=== PATIENT | male | born 1980 | race Caucasian/White ===

== ENCOUNTER 2018-06-15 06:51 | Observation (INO) ==
--- NOTE | 2018-06-15 07:07 | Emergency Department Note ---
Disposition Clinical Impression: Metformin overdose, Suicidal intent Disposition: Admitted As Inpatient Condition: Fair Referrals: NONE,PCP [Primary Care Provider] - Forms: ED Satisfaction Letter Psych HPI - General Chief Complaint: ED Psychiatric Symptoms Stated Complaint: OD Time Seen by Provider: 06/15/18 06:52 Source: patient, EMS Nursing Notes Reviewed: Yes Vital Signs Reviewed: Yes - History of Present Illness HPI Narrative: 37-year-old male presents emergency department after an overdose. He states that he took 30 500mg tablets of metformin within the last hour. His friend called EMS to bring him here. Patient denies taking any other substances. - Related Data Home Medications Medication Instructions Recorded Confirmed Gabapentin [Neurontin] 600 mg PO TID 03/07/18 03/07/18 Pravastatin Sodium [Pravachol] 40 mg PO DAILY 03/07/18 03/07/18 Trazodone HCl 100 mg PO HS 03/07/18 03/07/18 clonazePAM [Clonazepam] 1 mg PO HS 03/07/18 03/07/18 Allergies Allergy/AdvReac Type Severity Reaction Status Date / Time haloperidol [From Haldol] Allergy Hives Verified 11/28/14 14:45 Penicillins [PCN] Allergy Difficulty Verified 11/28/14 14:45 Breathing ziprasidone [From Geodon] Allergy Hives Verified 11/28/14 14:45 lurasidone [From Latuda] AdvReac See Verified 10/25/15 17:34 Comments All systems ED: reviewed and negative except as stated. Review of Systems: As Per HPI Cardiovascular: Denies: chest pain Respiratory: Denies: dyspnea Gastrointestinal: Denies: abdominal pain, nausea, vomiting Integumentary: Denies: rash Neurological: Denies: weakness Psychiatric: Reports: suicidal thoughts Past Medical History - Past Medical History Attestation: Yes The following information was validated with the patient. Medical history: Reports: diabetes, hyperlipidemia, other Surgical history: Reports: appendectomy, tonsilectomy Psychiatric history: Reports: anxiety, bipolar, depression, previous psychiatric hospitalization - Social History Smoking Status: Current every day smoker Smokeless Tobacco Status: No Alcohol use: Reports: occasionally Drug use: Reports: marijuana Physical Exam - General Limitations: no limitations General appearance: alert, in no apparent distress - Head Head exam: normocephalic - Eye Eye exam: Present: EOMI - ENT ENT exam: mucous membranes moist - Neck Neck exam: Present: trachea midline - Chest Chest inspection: Present: symmetric chest wall rise - Respiratory Respiratory exam: Present: normal lung sounds bilaterally. Absent: respiratory distress, accessory muscle use - Cardiovascular Cardiovascular exam: Present: regular rate, normal rhythm, normal heart sounds - Abdominal Exam Abdominal exam: Present: soft, Non-Tender. Absent: distention, guarding, rebound, rigidity - Extremities Exam Extremities exam: Present: normal capillary refill - Back Exam Back exam: Present: full ROM - Neurological Exam Neurological exam: Present: alert, oriented X3 - Psychiatric Psychiatric exam: Present: normal affect, normal mood - Skin Skin exam: Present: warm, dry, intact, normal color. Absent: rash Course Vital Signs Temperature 97.4 F L 06/15/18 06:55 Pulse Rate 112 06/15/18 06:55 Respiratory Rate 18 06/15/18 06:55 Blood Pressure 128/99 06/15/18 06:55 O2 Sat by Pulse Oximetry 97 06/15/18 06:55 Temperature 97.4 F L 06/15/18 06:55 Pulse Rate 90 06/15/18 09:56 Respiratory Rate 18 06/15/18 09:56 Blood Pressure 120/83 06/15/18 09:56 O2 Sat by Pulse Oximetry 96 06/15/18 09:56 Oxygen Delivery Oxygen Delivery Room Air Psych - MDM Narrative Medical decision making narrative: 37-year-old male presents emergency department after overdose. I have spoken with poison control. Since the ingestion is within the last hour, was control recommended giving charcoal. He said to watch for profound lactic acidosis. We obtained ECG, does not reveal any QT prolongation. No QRS widening. Patient was given charcoal. He is currently hemodynamically stable. Patient has been pink slipped. 8:38 Patient does not have an acute kidney injury. Lactic acid normal. I did speak with nephrology who agreed to be consulted on the case. Recommended every 8 B MP's, lactic acid, VBG at this time. 9:50 Patient admitted to the hospitalist. Wanted 2 [address] placement. - Lab Data Result diagrams: 06/15/18 07:11 06/15/18 07:11 Lab Results 06/15/18 06/15/18 06/15/18 Range/Units 07:11 07:11 07:25 WBC 11.6 H (4.3-11.1) K/mcL RBC 5.21 (4.19-5.50) M/mcL Hgb 13.9 (12.9-16.9) g/dL Hct 42.2 (37.5-50.1) % MCV 81.0 L (83.0-100.0) fL MCH 26.7 L (28.0-33.3) pg MCHC 32.9 (31.6-35.5) g/dL RDW 14.1 (11.5-14.5) % Plt Count 289 (140-400) K/mcL MPV 9.0 L (9.4-12.4) fL Immature Gran % 0.3 (0-4) % Seg Neutrophils % 78.0 % Lymphocytes % 13.5 % Monocytes % 6.8 % Eosinophils % 1.1 % Basophils % 0.3 % Neutrophils # 9.1 H (1.6-8.9) K/mcL Lymphocytes # 1.6 (0.6-4.6) K/mcL Monocytes # 0.8 (0.0-1.3) K/mcL Eosinophils # 0.1 (0.0-0.6) K/mcL Basophils # 0.0 (0.0-0.2) K/mcL VBG pH 7.38 (7.32-7.42) pH Units VBG pCO2 39 L (41-51) mmHg VBG pO2 131 H (25-50) mmHg VBG HCO3 23 (21-27) mEq/L Sodium 139 (136-145) mEq/L Potassium 3.6 (3.5-5.1) mEq/L Chloride 105 (98-107) mEq/L Carbon Dioxide 23 (23-29) mEq/L BUN 14 (6-20) mg/dL Creatinine 0.75 (0.70-1.30) mg/dL Est GFR ( Amer) > 60 (> 60) Est GFR (Non-Af Amer) > 60 (> 60) BUN/Creatinine Ratio 19 (6-26) Glucose 143 H (70-105) mg/dL Calculated Osmolality 291 (280-300) Lactic Acid (0.5-2.2) mmol/L Calcium 9.6 (8.6-10.3) mg/dL Total Bilirubin 1.3 H (0.3-1.0) mg/dL Direct Bilirubin 0.3 H (0.0-0.2) mg/dL Indirect Bilirubin 1.0 (0.0-1.2) mg/dL AST 37 (13-39) Units/L ALT 16 (7-52) Units/L Alkaline Phosphatase 39 (34-104) Units/L Serum Total Protein 7.7 (6.4-8.9) g/dL Albumin 4.5 (3.5-5.7) g/dL Globulin 3.2 (2.4-3.5) g/dL Albumin/Globulin Ratio 1.4 (1.1-2.2) Salicylates < 2.5 L (15.0-30.0) mg/dL Acetaminophen < 10 L (10-20) mcg/mL Ethyl Alcohol < 10 (Less than 10) mg/dL 06/15/18 Range/Units 07:54 WBC (4.3-11.1) K/mcL RBC (4.19-5.50) M/mcL Hgb (12.9-16.9) g/dL Hct (37.5-50.1) % MCV (83.0-100.0) fL MCH (28.0-33.3) pg MCHC (31.6-35.5) g/dL RDW (11.5-14.5) % Plt Count (140-400) K/mcL MPV (9.4-12.4) fL Immature Gran % (0-4) % Seg Neutrophils % % Lymphocytes % % Monocytes % % Eosinophils % % Basophils % % Neutrophils # (1.6-8.9) K/mcL Lymphocytes # (0.6-4.6) K/mcL Monocytes # (0.0-1.3) K/mcL Eosinophils # (0.0-0.6) K/mcL Basophils # (0.0-0.2) K/mcL VBG pH (7.32-7.42) pH Units VBG pCO2 (41-51) mmHg VBG pO2 (25-50) mmHg VBG HCO3 (21-27) mEq/L Sodium (136-145) mEq/L Potassium (3.5-5.1) mEq/L Chloride (98-107) mEq/L Carbon Dioxide (23-29) mEq/L BUN (6-20) mg/dL Creatinine (0.70-1.30) mg/dL Est GFR ( Amer) (> 60) Est GFR (Non-Af Amer) (> 60) BUN/Creatinine Ratio (6-26) Glucose (70-105) mg/dL Calculated Osmolality (280-300) Lactic Acid 0.6 (0.5-2.2) mmol/L Calcium (8.6-10.3) mg/dL Total Bilirubin (0.3-1.0) mg/dL Direct Bilirubin (0.0-0.2) mg/dL Indirect Bilirubin (0.0-1.2) mg/dL AST (13-39) Units/L ALT (7-52) Units/L Alkaline Phosphatase (34-104) Units/L Serum Total Protein (6.4-8.9) g/dL Albumin (3.5-5.7) g/dL Globulin (2.4-3.5) g/dL Albumin/Globulin Ratio (1.1-2.2) Salicylates (15.0-30.0) mg/dL Acetaminophen (10-20) mcg/mL Ethyl Alcohol (Less than 10) mg/dL - EKG Data EKG attestation: Yes I reviewed and interpreted this EKG. EKG results narrative: 704 Heart rate 160 bpm, RI interval 163 ms, QRS duration 111 ms, QT 347 ms, right axis deviation. No ischemic ST changes on this EKG. Psychiatric Medical Clearance - Medical Clearance Checklist Medical History: No Social History Section defined Current Vitals: Last Vital Signs Temp 97.4 F L 06/15/18 06:55 Pulse 90 06/15/18 09:56 Resp 18 06/15/18 09:56 BP 120/83 06/15/18 09:56 Pulse Ox 96 06/15/18 09:56 Psychiatric Lab Panel: Drug Levels and Toxicity 06/15/18 07:11 Acetaminophen < 10 L Ethyl Alcohol < 10 Abnormal Labs: Abnormal lab results WBC 11.6 K/mcL (4.3-11.1) H 06/15/18 07:11 MCV 81.0 fL (83.0-100.0) L 06/15/18 07:11 MCH 26.7 pg (28.0-33.3) L 06/15/18 07:11 MPV 9.0 fL (9.4-12.4) L 06/15/18 07:11 Neutrophils # 9.1 K/mcL (1.6-8.9) H 06/15/18 07:11 VBG pCO2 39 mmHg (41-51) L 06/15/18 07:25 VBG pO2 131 mmHg (25-50) H 06/15/18 07:25 Glucose 143 mg/dL (70-105) H 06/15/18 07:11 Total Bilirubin 1.3 mg/dL (0.3-1.0) H 06/15/18 07:11 Direct Bilirubin 0.3 mg/dL (0.0-0.2) H 06/15/18 07:11 Salicylates < 2.5 mg/dL (15.0-30.0) L 06/15/18 07:11 Acetaminophen < 10 mcg/mL (10-20) L 06/15/18 07:11 Statement of Medical Clearance: I have evaluated the patient, reviewed diagnostic information, and certify that the patient's medical condition is sufficiently stable that transfer to the psychiatric unit does not pose a significant risk of deterioration. Attestation Statement - Attestation Attestation: I, Timothy Thompson DO, examined this patient [id number] and my medical decision-making was reviewed with Dr. Sergio Delgado, Resident Physician. I agree with the documented findings, disposition and treatment plan as described except to the extent set forth below. I personally supervised and was present for the velasquez/critical portions of the procedures completed by the resident documented below. Please see my progress notes for details.
[2018-06-15] MEDS ORDERED: Ondansetron 4 MG/2 ML VIAL IVP ONE (07:11)
[2018-06-15] MEDS ORDERED: 0.9 % Sodium Chloride 1,000 ML IVC ONE (07:13)
[2018-06-15 07:24] LABS: Basophils % 0.3 %; Eosinophils # 0.1 K/mcL (0.0-0.6); Eosinophils % 1.1 %; Hematocrit 42.2 % (37.5-50.1); Hemoglobin 13.9 g/dL (12.9-16.9); Immature Granulocytes % 0.3 % (0-4); Lymphocytes # 1.6 K/mcL (0.6-4.6); Lymphocytes % 13.5 %; Mean Corpuscular HGB Conc 32.9 g/dL (31.6-35.5); Mean Corpuscular Hemoglobin 26.7 pg (28.0-33.3); Monocytes # 0.8 K/mcL (0.0-1.3); Monocytes % 6.8 %; Neutrophils # 9.1 K/mcL (1.6-8.9); Platelet Count 289 K/mcL (140-400); Red Blood Count 5.21 M/mcL (4.19-5.50); Red Cell Distribution Width 14.1 % (11.5-14.5)
[2018-06-15 07:28] LABS: VBG HCO3 23 mEq/L (21-27); VBG PCO2 39 mmHg (41-51); VBG PH 7.38 pH Units (7.32-7.42); VBG PO2 131 mmHg (25-50)
[2018-06-15] MEDS ORDERED: D5% in 0.45% NACL 1,000 ML IVC STA (07:33)
[2018-06-15 07:44] LABS: Acetaminophen < 10 mcg/mL (10-20); Alanine Aminotransferase 16 Units/L (7-52); Albumin 4.5 g/dL (3.5-5.7); Albumin/Globulin Ratio 1.4 (1.1-2.2); Alkaline Phosphatase 39 Units/L (34-104); Aspartate Amino Transferase 37 Units/L (13-39); BUN/Creatinine Ratio 19 (6-26); Bilirubin,Direct 0.3 mg/dL (0.0-0.2); Bilirubin,Total 1.3 mg/dL (0.3-1.0); Blood Urea Nitrogen 14 mg/dL (6-20); Calcium 9.6 mg/dL (8.6-10.3); Carbon Dioxide 23 mEq/L (23-29); Chloride 105 mEq/L (98-107); Ethanol < 10 mg/dL (Less than 10); Globulin 3.2 g/dL (2.4-3.5); Glucose 143 mg/dL (70-105); Osmolality,Calculated 291 (280-300); Potassium 3.6 mEq/L (3.5-5.1); Salicylate < 2.5 mg/dL (15.0-30.0); Sodium 139 mEq/L (136-145); Total Protein 7.7 g/dL (6.4-8.9); eGFR For Non-African Americans > 60 (> 60)
[2018-06-15] MEDS ORDERED: Dicyclomine 20 MG/2 ML AMPUL IM STA (08:30)
--- NOTE | 2018-06-15 08:36 | Emergency Department Note ---
Disposition Clinical Impression: Metformin overdose, Suicidal intent Disposition: Admitted As Inpatient Condition: Fair Referrals: NONE,PCP [Primary Care Provider] - Forms: ED Satisfaction Letter Time of Disposition: 11:04 General Adult HPI - General Chief complaint: ED Psychiatric Symptoms Stated complaint: OD Time Seen by Provider: 06/15/18 06:52 Source: patient, EMS Limitations: no limitations - History of Present Illness Pain Scale: 0 - Related Data Home Medications Medication Instructions Recorded Confirmed Gabapentin [Neurontin] 600 mg PO TID 03/07/18 03/07/18 Pravastatin Sodium [Pravachol] 40 mg PO DAILY 03/07/18 03/07/18 Trazodone HCl 100 mg PO HS 03/07/18 03/07/18 clonazePAM [Clonazepam] 1 mg PO HS 03/07/18 03/07/18 Allergies Allergy/AdvReac Type Severity Reaction Status Date / Time haloperidol [From Haldol] Allergy Hives Verified 11/28/14 14:45 Penicillins [PCN] Allergy Difficulty Verified 11/28/14 14:45 Breathing ziprasidone [From Geodon] Allergy Hives Verified 11/28/14 14:45 lurasidone [From Latuda] AdvReac See Verified 10/25/15 17:34 Comments Cardiovascular: Denies: chest pain Respiratory: Denies: dyspnea Gastrointestinal: Denies: abdominal pain, nausea, vomiting Integumentary: Denies: rash Neurological: Denies: weakness Psychiatric: Reports: suicidal thoughts Past Medical History - Past Medical History Medical history: Reports: diabetes, hyperlipidemia, other Surgical history: Reports: appendectomy, tonsilectomy Psychiatric history: Reports: anxiety, bipolar, depression, previous psychiatric hospitalization - Social History Smoking Status: Current every day smoker Smokeless Tobacco Status: No Alcohol use: Reports: occasionally Drug use: Reports: marijuana Physical Exam - General Limitations: no limitations General appearance: alert, in no apparent distress Course Vital Signs Temperature 97.4 F L 06/15/18 06:55 Pulse Rate 112 06/15/18 06:55 Respiratory Rate 18 06/15/18 06:55 Blood Pressure 128/99 06/15/18 06:55 O2 Sat by Pulse Oximetry 97 06/15/18 06:55 Temperature 97.4 F L 06/15/18 06:55 Pulse Rate 82 06/15/18 10:34 Respiratory Rate 20 04/17/19 10:34 Blood Pressure 121/76 06/15/18 10:34 O2 Sat by Pulse Oximetry 97 06/15/18 10:34 Oxygen Delivery Oxygen Delivery Room Air Medical Decision Making - Lab Data Result diagrams: 06/15/18 07:11 06/15/18 07:11 Lab Results 06/15/18 06/15/18 06/15/18 Range/Units 07:11 07:11 07:25 WBC 11.6 H (4.3-11.1) K/mcL RBC 5.21 (4.19-5.50) M/mcL Hgb 13.9 (12.9-16.9) g/dL Hct 42.2 (37.5-50.1) % MCV 81.0 L (83.0-100.0) fL MCH 26.7 L (28.0-33.3) pg MCHC 32.9 (31.6-35.5) g/dL RDW 14.1 (11.5-14.5) % Plt Count 289 (140-400) K/mcL MPV 9.0 L (9.4-12.4) fL Immature Gran % 0.3 (0-4) % Seg Neutrophils % 78.0 % Lymphocytes % 13.5 % Monocytes % 6.8 % Eosinophils % 1.1 % Basophils % 0.3 % Neutrophils # 9.1 H (1.6-8.9) K/mcL Lymphocytes # 1.6 (0.6-4.6) K/mcL Monocytes # 0.8 (0.0-1.3) K/mcL Eosinophils # 0.1 (0.0-0.6) K/mcL Basophils # 0.0 (0.0-0.2) K/mcL VBG pH 7.38 (7.32-7.42) pH Units VBG pCO2 39 L (41-51) mmHg VBG pO2 131 H (25-50) mmHg VBG HCO3 23 (21-27) mEq/L Sodium 139 (136-145) mEq/L Potassium 3.6 (3.5-5.1) mEq/L Chloride 105 (98-107) mEq/L Carbon Dioxide 23 (23-29) mEq/L BUN 14 (6-20) mg/dL Creatinine 0.75 (0.70-1.30) mg/dL Est GFR ( Amer) > 60 (> 60) Est GFR (Non-Af Amer) > 60 (> 60) BUN/Creatinine Ratio 19 (6-26) Glucose 143 H (70-105) mg/dL Calculated Osmolality 291 (280-300) Lactic Acid (0.5-2.2) mmol/L Calcium 9.6 (8.6-10.3) mg/dL Total Bilirubin 1.3 H (0.3-1.0) mg/dL Direct Bilirubin 0.3 H (0.0-0.2) mg/dL Indirect Bilirubin 1.0 (0.0-1.2) mg/dL AST 37 (13-39) Units/L ALT 16 (7-52) Units/L Alkaline Phosphatase 39 (34-104) Units/L Serum Total Protein 7.7 (6.4-8.9) g/dL Albumin 4.5 (3.5-5.7) g/dL Globulin 3.2 (2.4-3.5) g/dL Albumin/Globulin Ratio 1.4 (1.1-2.2) Urine Color (Yellow) Urine Clarity (Clear) Urine pH (5.0-8.0) pH Units Ur Specific Rifle (1.010-1.025) Urine Protein (Neg-Trace) mg/dL Urine Glucose (UA) (Normal) mg/dL Urine Ketones (Negative) mg/dL Urine Blood (Negative) Urine Nitrite (Negative) Urine Bilirubin (Negative) Urine Urobilinogen (Normal) mg/dL Ur Leukocyte Esterase (Negative) Urine Microscopic RBC (0-3) per hpf Urine Microscopic WBC (0-3) per hpf Ur Squamous Epith Cells (None-Few) per lpf Urine Bacteria (None-Few) per hpf Hyaline Casts (None-Few) per lpf Salicylates < 2.5 L (15.0-30.0) mg/dL Urine Opiates Screen (Xvedwd=720) ng/mL Acetaminophen < 10 L (10-20) mcg/mL Ur Barbiturates Screen (Rplauq=326) ng/mL Ur Phencyclidine Scrn (Cutoff=25) ng/mL Ur Amphetamines Screen (Kduibl=5050) ng/mL U Benzodiazepines Scrn (Outrbw=533) ng/mL Urine Cocaine Screen (Cutoff= 300) ng/mL U Marijuana (THC) Screen (Cutoff = 50) ng/mL Ur Drug Screen Interp Ethyl Alcohol < 10 (Less than 10) mg/dL 06/15/18 06/15/18 06/15/18 Range/Units 07:54 10:01 10:02 WBC (4.3-11.1) K/mcL RBC (4.19-5.50) M/mcL Hgb (12.9-16.9) g/dL Hct (37.5-50.1) % MCV (83.0-100.0) fL MCH (28.0-33.3) pg MCHC (31.6-35.5) g/dL RDW (11.5-14.5) % Plt Count (140-400) K/mcL MPV (9.4-12.4) fL Immature Gran % (0-4) % Seg Neutrophils % % Lymphocytes % % Monocytes % % Eosinophils % % Basophils % % Neutrophils # (1.6-8.9) K/mcL Lymphocytes # (0.6-4.6) K/mcL Monocytes # (0.0-1.3) K/mcL Eosinophils # (0.0-0.6) K/mcL Basophils # (0.0-0.2) K/mcL VBG pH (7.32-7.42) pH Units VBG pCO2 (41-51) mmHg VBG pO2 (25-50) mmHg VBG HCO3 (21-27) mEq/L Sodium (136-145) mEq/L Potassium (3.5-5.1) mEq/L Chloride (98-107) mEq/L Carbon Dioxide (23-29) mEq/L BUN (6-20) mg/dL Creatinine (0.70-1.30) mg/dL Est GFR ( Amer) (> 60) Est GFR (Non-Af Amer) (> 60) BUN/Creatinine Ratio (6-26) Glucose (70-105) mg/dL Calculated Osmolality (280-300) Lactic Acid 0.6 (0.5-2.2) mmol/L Calcium (8.6-10.3) mg/dL Total Bilirubin (0.3-1.0) mg/dL Direct Bilirubin (0.0-0.2) mg/dL Indirect Bilirubin (0.0-1.2) mg/dL AST (13-39) Units/L ALT (7-52) Units/L Alkaline Phosphatase (34-104) Units/L Serum Total Protein (6.4-8.9) g/dL Albumin (3.5-5.7) g/dL Globulin (2.4-3.5) g/dL Albumin/Globulin Ratio (1.1-2.2) Urine Color Yellow (Yellow) Urine Clarity Clear (Clear) Urine pH 5.5 (5.0-8.0) pH Units Ur Specific [place]ifle 1.030 H (1.010-1.025) Urine Protein 30 H (Neg-Trace) mg/dL Urine Glucose (UA) Normal (Normal) mg/dL Urine Ketones 40 H (Negative) mg/dL Urine Blood Negative (Negative) Urine Nitrite Negative (Negative) Urine Bilirubin Small H (Negative) Urine Urobilinogen Normal (Normal) mg/dL Ur Leukocyte Esterase Small H (Negative) Urine Microscopic RBC 0-3 (0-3) per hpf Urine Microscopic WBC 15-30 H (0-3) per hpf Ur Squamous Epith Cells Many H (None-Few) per lpf Urine Bacteria None Seen (None-Few) per hpf Hyaline Casts Few (None-Few) per lpf Salicylates (15.0-30.0) mg/dL Urine Opiates Screen Negative (Agtohz=265) ng/mL Acetaminophen (10-20) mcg/mL Ur Barbiturates Screen Negative (Slyobl=051) ng/mL Ur Phencyclidine Scrn Negative (Cutoff=25) ng/mL Ur Amphetamines Screen Negative (Iknjsl=0547) ng/mL U Benzodiazepines Scrn Negative (Kcmhvz=742) ng/mL Urine Cocaine Screen Negative (Cutoff= 300) ng/mL U Marijuana (THC) Screen Negative (Cutoff = 50) ng/mL Ur Drug Screen Interp See Below Ethyl Alcohol (Less than 10) mg/dL 06/15/18 Range/Units 10:39 WBC (4.3-11.1) K/mcL RBC (4.19-5.50) M/mcL Hgb (12.9-16.9) g/dL Hct (37.5-50.1) % MCV (83.0-100.0) fL MCH (28.0-33.3) pg MCHC (31.6-35.5) g/dL RDW (11.5-14.5) % Plt Count (140-400) K/mcL MPV (9.4-12.4) fL Immature Gran % (0-4) % Seg Neutrophils % % Lymphocytes % % Monocytes % % Eosinophils % % Basophils % % Neutrophils # (1.6-8.9) K/mcL Lymphocytes # (0.6-4.6) K/mcL Monocytes # (0.0-1.3) K/mcL Eosinophils # (0.0-0.6) K/mcL Basophils # (0.0-0.2) K/mcL VBG pH (7.32-7.42) pH Units VBG pCO2 (41-51) mmHg VBG pO2 (25-50) mmHg VBG HCO3 (21-27) mEq/L Sodium (136-145) mEq/L Potassium (3.5-5.1) mEq/L Chloride (98-107) mEq/L Carbon Dioxide (23-29) mEq/L BUN (6-20) mg/dL Creatinine (0.70-1.30) mg/dL Est GFR ( Amer) (> 60) Est GFR (Non-Af Amer) (> 60) BUN/Creatinine Ratio (6-26) Glucose (70-105) mg/dL Calculated Osmolality (280-300) Lactic Acid 1.3 (0.5-2.2) mmol/L Calcium (8.6-10.3) mg/dL Total Bilirubin (0.3-1.0) mg/dL Direct Bilirubin (0.0-0.2) mg/dL Indirect Bilirubin (0.0-1.2) mg/dL AST (13-39) Units/L ALT (7-52) Units/L Alkaline Phosphatase (34-104) Units/L Serum Total Protein (6.4-8.9) g/dL Albumin (3.5-5.7) g/dL Globulin (2.4-3.5) g/dL Albumin/Globulin Ratio (1.1-2.2) Urine Color (Yellow) Urine Clarity (Clear) Urine pH (5.0-8.0) pH Units Ur Specific [place] (1.010-1.025) Urine Protein (Neg-Trace) mg/dL Urine Glucose (UA) (Normal) mg/dL Urine Ketones (Negative) mg/dL Urine Blood (Negative) Urine Nitrite (Negative) Urine Bilirubin (Negative) Urine Urobilinogen (Normal) mg/dL Ur Leukocyte Esterase (Negative) Urine Microscopic RBC (0-3) per hpf Urine Microscopic WBC (0-3) per hpf Ur Squamous Epith Cells (None-Few) per lpf Urine Bacteria (None-Few) per hpf Hyaline Casts (None-Few) per lpf Salicylates (15.0-30.0) mg/dL Urine Opiates Screen (Zlorjq=066) ng/mL Acetaminophen (10-20) mcg/mL Ur Barbiturates Screen (Tqbhqr=636) ng/mL Ur Phencyclidine Scrn (Cutoff=25) ng/mL Ur Amphetamines Screen (Yyzofl=6635) ng/mL U Benzodiazepines Scrn (Ynjyal=740) ng/mL Urine Cocaine Screen (Cutoff= 300) ng/mL U Marijuana (THC) Screen (Cutoff = 50) ng/mL Ur Drug Screen Interp Ethyl Alcohol (Less than 10) mg/dL Critical Care Time Critical Care Time: Yes Total Critical Care Time: 45 Attestation: Critical care performed: Time is exclusive of separately billable procedures. Time includes: direct patient care, patient reassessment, coordination of patient care, interpretation of data (laboratory data, radiology data, and respiratory data), review of patient's medical records, medical consultation and documentation of patient care. Procedures included in critical care time: Procedures excluded from critical care time: Attestation Statement - Attestation Attestation: I, Timothy Thompson DO, examined this patient [id number] and my medical decision-making was reviewed with Dr. Sergio Delgado, Resident Physician. I agree with the documented findings, disposition and treatment plan as described except to the extent set forth below. I personally supervised and was present for the velasquez/critical portions of the procedures completed by the resident documented below. Please see my progress notes for details. 37-year-old male presents emergency room with large ingestion of metformin. Patient took approximately 30 tablets of 500 mg metformin approximately 30 minutes prior to coming into the emergency department. Patient did this and attempted in his life. Patient does have a substance abuse history as well as psychiatric related illness at baseline. Patient is currently denying any symptoms including chest pain shortness of breath headache vision changes nausea vomiting or diarrhea. Has not had any fevers or chills. Denies any other coingestions this time. Immediately poison control was contacted. Alek mmendation was to give activated charcoal the symptomatically monitor the patient. Appropriate interventions have been put in place including detailed laboratory workup and VBG. Consultation will be placed out to on-call nephrology for the recommendations for possible temporary dialysis catheter in the event that the patient will need emergent dialysis. Patient is high risk for liver failure and kidney failure. D5 half-normal saline was started this point for maintenance fluids to preventing is any hypoglycemic events. Patient will be discussed with on-call russian rubber for consultation secondary to the concern for nephrotoxicity. Detailed workup will be completed and fluids will be run. Disposition will be admission the hospital and psychiatric evaluation. [place] slip was filled. Patient is alert oriented and answering questions on arrival. He tolerated the by mouth charcoal without any difficulty. Lungs are clear. Heart is regular. Patient has not had any retching or vomiting at this point. No concern for mediastinal injury or aspiration at this time. Abdomen is soft nontender nondistended. No other concerns or issues this point. See detailed documentation the physical exam, medical intervention, medical decision-making and disposition in the resident physician's note. No critical care applied the patient's treatment course at this time. 0815 On-call nephrology recommended placing the patient on a bicarbonate drip at this point with the D5 half-normal maintenance fluid. No dialysis catheter is warranted. Hospitals will be paged for admission. Patient is otherwise stable. 45 minutes of critical care applied the patient's treatment course secondary to multidisciplinary intervention medical management hospitals has been paged this time for admission 1025 Patient was admitted to the hospitalist Dr. Kwok. Review the case was completed. No other recommendations or concerns are noted this time. Intervention has been provided at the request of nephrology. Patient is otherwise stable. Patient will be monitored in the emergency department until the admission process is completed
[2018-06-15] MEDS ORDERED: Sodium Bicarbonate 75 MEQ in 0.45 % Sodium Chloride 1,000 ML IVC SCH (08:45)
--- NOTE | 2018-06-15 08:54 | Electrocardiograph Report ---
[facility] Test Date: 2018-06-15 Pat Name: Negro Santoyo Department: [id number] Room: Gender: M International Project Manager: : 1980 Requested By: Kat Lovell Order Number: [id number] Reading MD: Joe Collins Measurements Intervals [place] Rate: 116 P: 61 DC: 163 QRS: 253 QRSD: 111 T: 50 QT: 347 QTc: 482 Interpretive Statements Sinus tachycardia LAD, consider left anterior fascicular block Anterior infarct, old ST elevation, consider inferior injury Electronically Signed On 06-15-2018 8:52:17 EDT by Joe Collins
--- NOTE | 2018-06-15 09:31 | Nephrology Consult Note ---
Date of Encounter: 06/15/18 Time of Encounter: 09:15 Assessment and Plan (1) Overdose Current Visit: Yes Status: Acute Status post activated charcoal, and his serum carbon dioxide is not consistent with metabolic acidosis at this point. I recommend checking a urinalysis for the urine pH, and alkalinizing the urine with a half-normal saline plus sodium bicarbonate drip. No urgent indication for CANOE BUILDER at this time. Thank you for consulting [facility]. We will follow with you. Qualifiers: Encounter type: initial encounter Qualified Code(s): T50.902A - Poisoning by unspecified drugs, medicaments and biological substances, intentional self- harm, initial encounter History of Present Illness - Reason for Consult Consult date: 06/15/18 metabolic acidosis (risk for metabolic acidosis from metformin OD) Requesting physician: Sergio Delgado - Chief Complaint OD on Metformin - History of Present Illness 37 y/o WM with a pmh of mental health condition(s) who presented with an OD. He had reported taking XS metformin and received activated charcoal. Nephrology was consulted in case if he developed CANOE BUILDER indications such as potential for metabolic acidosis, which is a known possible complication of metformin. He recurrent feel asleep, so he was not able to have any coherent conversation with me, thus limiting the HPI and ROS. Past Med Surg Social Fam HX - Past Medical History Medical history: diabetes, hyperlipidemia, other Psychiatric history: anxiety, bipolar, depression, previous psychiatric hospitalization - Past Surgical History Surgical History: appendectomy, tonsilectomy - Social History Smoking Status: Current every day smoker Smokeless Tobacco Status: No Alcohol use: occasionally Drug use: marijuana - Family History Father Adopted: [place]: Tima Santoyo Age: 55 Living Status: Still Living Hx Family Endocrine Disorder: Yes (family history of diabetes) Medications and Allergies Gabapentin [Neurontin] 600 mg PO TID 03/07/18 [History] Pravastatin Sodium [Pravachol] 40 mg PO DAILY 03/07/18 [History] Trazodone HCl 100 mg PO HS PRN 03/07/18 [History] clonazePAM [Clonazepam] 1 mg PO BID PRN 03/07/18 [History] Bupropion HCl [Wellbutrin Xl] 300 mg PO QAM 06/15/18 [History] HydrOXYzine Pamoate [Vistaril] 50 mg PO BID PRN 06/15/18 [History] metFORMIN [Glucophage] 500 mg PO BIDWM 06/15/18 [History] Allergy/AdvReac Type Severity Reaction Status Date / Time haloperidol [From Haldol] Allergy Hives Verified 11/28/14 14:45 Penicillins [PCN] Allergy Difficulty Verified 11/28/14 14:45 Breathing ziprasidone [From Geodon] Allergy Hives Verified 11/28/14 14:45 lurasidone [From Latuda] AdvReac See Verified 10/25/15 17:34 Comments Review of Systems ROS unobtainable: due to mental status Exam - Vital Signs Vital signs: Initial Vital Signs Temp Pulse Resp BP Pulse Ox 97.4 F L 112 18 128/99 97 06/15/18 06:55 06/15/18 06:55 06/15/18 06:55 06/15/18 06:55 06/15/18 06:55 Vital Signs - Last 8 Hours Temp Pulse Resp BP Pulse Ox 06/15/18 08:30 108 24 103/59 96 06/15/18 08:00 94 26 110/61 94 06/15/18 06:55 97.4 F L 112 18 128/99 97 Intake and Output 06/14/18 06/15/18 06/15/18 23:59 07:59 15:59 Intake Total 500 / 500 Balance 500 / 500 Intake: IV Fluids 500 / 500 0.9 % Sodium Chloride 1,000 ML 500 / 500 @ 999 mls/hr IVC .Q1H1M ONE Rx# :[id number] Other: Weight 113.942 kg Blood Glucose* 125 137 Patient Weight 06/15/18 23:59 Weight 113.942 kg - General Appearance General appearance: well-developed, well-nourished, obese EENT: ATNC, PERRL, mucous membranes moist (with activated charcoal stains on his lips and oral mucous membranes) Neck: supple Respiratory: clear Cardiology: no edema, normal S1, normal S2 Gastrointestinal: normoactive bowel sounds, no guarding, obese Integumentary: no rash, warm and dry Neurologic: no focal deficit (falls asleep quickly), confused, disoriented Musculoskeletal: no cyanosis, no clubbing Psychiatric: cooperative Results - Lab Results 06/15/18 07:11 06/15/18 18:49 Most recent lab results Calcium 9.6 mg/dL (8.6-10.3) 06/15/18 07:11 Consult Discharge Plan - Plan
[2018-06-15] MEDS ORDERED: Naloxone 0.4 MG/ML INJ IVP PRN (10:26)
[2018-06-15] MEDS ORDERED: traMADol 50 MG TABLET PO PRN (10:26)
[2018-06-15 10:27] LABS: Amphetamine Screen,Urine Negative ng/mL (Cutoff=1000); Barbiturate Screen,Urine Negative ng/mL (Cutoff=200); Benzodiazepines Screen,Urine Negative ng/mL (Cutoff=200); Cannabinoid Screen,Urine Negative ng/mL (Cutoff = 50); Cocaine Screen,Urine Negative ng/mL (Cutoff= 300); Opiate Screen,Urine Negative ng/mL (Cutoff=300); Phencyclidine Screen,Urine Negative ng/mL (Cutoff=25)
[2018-06-15] MEDS ORDERED: D5% in Water 1,000 ML IVC PRN (10:29)
[2018-06-15] MEDS ORDERED: *HR* Dextrose 50 % in Water (Syg) 50 ML SYRINGE IVP PRN (10:29)
[2018-06-15] MEDS ORDERED: Dextrose Gel 15 GM/37.5 ML TUBE PO PRN ×2 (10:29)
[2018-06-15 10:31] LABS: Bilirubin,Urine Small (Negative); Blood,Urine Negative (Negative); Clarity,Urine Clear (Clear); Color,Urine Yellow (Yellow); Glucose,Urine (UA) Normal (Normal); Ketones,Urine 40 mg/dL (Negative); Leukocyte Esterase,Urine Small (Negative); Nitrite,Urine Negative (Negative); PH,Urine 5.5 pH Units (5.0-8.0); Protein,Urine 30 mg/dL (Neg-Trace); Urobilinogen,Urine Normal (Normal)
[2018-06-15 10:35] LABS: Bacteria,Urine None Seen per hpf (None-Few); Hyaline Casts,Urine Few per lpf (None-Few); RBC,Urine 0-3 per hpf (0-3); Squamous Epithelial Cell,Urine Many per lpf (None-Few); WBC,Urine 15-30 per hpf (0-3)
[2018-06-15 11:08] LABS: BUN/Creatinine Ratio 19 (6-26); Blood Urea Nitrogen 13 mg/dL (6-20); Calcium 8.7 mg/dL (8.6-10.3); Carbon Dioxide 25 mEq/L (23-29); Chloride 106 mEq/L (98-107); Glucose 163 mg/dL (70-105); Osmolality,Calculated 290 (280-300); Potassium 3.5 mEq/L (3.5-5.1); Sodium 138 mEq/L (136-145); eGFR For Non-African Americans > 60 (> 60)
--- NOTE | 2018-06-15 11:20 | Internal Med History&Physical ---
Date of Encounter: 06/15/18 Time of Encounter: 11:19 Internal Medicine - H&P: HPI Chief complaint: ingestion of more than 30 pills of metformin. Plans for Post Hospital Care: Home History of present illness: Mr. Santoyo is a 37 year old male PMH of DM. Information obtained from the ED chart as patient very somnolent at the time of my evaluation and he is Alert or oriented. Per ED chart patient was brought to the ED after he ingested 30 metformin pills of 500mg with an intent to commit suicide. ED contacted poison control and they recommended to administered charcoal as the ingestion of the medication was about 30 minutes prior to his presentation to the ED. During my evaluation patient somnolent, arousable to commands not alert or pablito ented. Past Med Surg Social Fam HX - Past Medical History Medical history: diabetes, hyperlipidemia, other Psychiatric history: anxiety, bipolar, depression, previous psychiatric hospitalization - Past Surgical History Surgical History: appendectomy, tonsilectomy - Social History Smoking Status: Current every day smoker Smokeless Tobacco Status: No Alcohol use: occasionally Drug use: marijuana - Additional Family History Additional family history: unable to obtain due to AMS Internal Medicine - H&P: Meds Gabapentin [Neurontin] 600 mg PO TID 03/07/18 [History] Pravastatin Sodium [Pravachol] 40 mg PO DAILY 03/07/18 [History] Trazodone HCl 100 mg PO HS PRN 03/07/18 [History] clonazePAM [Clonazepam] 1 mg PO BID PRN 03/07/18 [History] Bupropion HCl [Wellbutrin Xl] 300 mg PO QAM 06/15/18 [History] HydrOXYzine Pamoate [Vistaril] 50 mg PO BID PRN 06/15/18 [History] metFORMIN [Glucophage] 500 mg PO BIDWM 06/15/18 [History] Allergy/AdvReac Type Severity Reaction Status Date / Time haloperidol [From Haldol] Allergy Hives Verified 11/28/14 14:45 Penicillins [PCN] Allergy Difficulty Verified 11/28/14 14:45 Breathing ziprasidone [From Geodon] Allergy Hives Verified 11/28/14 14:45 lurasidone [From Latuda] AdvReac See Verified 10/25/15 17:34 Comments ROS unobtainable: due to mental status All Systems PM: A 10-system review of systems was performed and is negative for pertinent findings except as documented above in the HPI. - Constitutional Vitals: Temp Pulse Resp BP Pulse Ox 97.4 F L 82 20 121/76 97 06/15/18 06:55 06/15/18 10:34 06/15/18 10:34 06/15/18 10:34 06/15/18 10:34 Exam: Vitals: Reviewed General: somnolent, but arrousable to commands. Cardiovascular: RRR, normal S1 & S2, no rubs, murmurs or gallops. Lungs: CTA b/l, no wheezes or crackles. Abdomen: Soft, non-tender, no rigidity. Extremities:No deformity, no edema or tenderness, no joint swelling or clubbing. Neurological: unable to perform due to mental status Rest of the physical exam is non contributory Internal Med - H&P Results - Labs CBC & Chem 7: 06/15/18 07:11 06/15/18 10:39 Labs: Short CBC 06/15/18 Range/Units 07:11 WBC 11.6 H (4.3-11.1) K/mcL Hgb 13.9 (12.9-16.9) g/dL Hct 42.2 (37.5-50.1) % Plt Count 289 (140-400) K/mcL Neutrophils # 9.1 H (1.6-8.9) K/mcL BMP 06/15/18 06/15/18 07:11 10:39 Sodium 139 138 Potassium 3.6 3.5 Chloride 105 106 Carbon Dioxide 23 25 BUN 14 13 Creatinine 0.75 0.68 L Glucose 143 H 163 H Calcium 9.6 8.7 Liver Function 06/15/18 Range/Units 07:11 Total Bilirubin 1.3 H (0.3-1.0) mg/dL Direct Bilirubin 0.3 H (0.0-0.2) mg/dL AST 37 (13-39) Units/L ALT 16 (7-52) Units/L Alkaline Phosphatase 39 (34-104) Units/L Albumin 4.5 (3.5-5.7) g/dL Urine 06/15/18 Range/Units 10:01 Urine Color Yellow (Yellow) Urine Clarity Clear (Clear) Urine pH 5.5 (5.0-8.0) pH Units Ur Specific [place] 1.030 H (1.010-1.025) Urine Protein 30 H (Neg-Trace) mg/dL Urine Glucose (UA) Normal (Normal) mg/dL - ABG Interpretation ABG results: 06/15/18 07:25 VBG pH 7.38 VBG pCO2 39 L VBG pO2 131 H VBG HCO3 23 - Assessment and Plan (1) Metformin overdose Current Visit: Yes Status: Acute Assessment and plan: patient reported taking around 30 pills of metformin 30 minutes prior to presenting to the ED. Plan poison controlled contacted by the ED. patient received activated charcoal Nephrology consulted recommended to start bicarb drip BMP Q6HRs ABG stat ordered ICU has been consulted due to the patient's worsening metal status continue potline monitor Lactic acid Q6HRs 1:1 sitter Psych consulted Accu-checks Q1H (2) Altered mental status Current Visit: Yes Status: Acute Assessment and plan: likely due to medication related. close monitoring for Airways compromise. Qualifiers: Altered mental status type: somnolence Qualified Code(s): R40.0 - Somnolence (3) DVT prophylaxis Current Visit: Yes Status: Acute Assessment and plan: heparin subQ (4) Suicidal intent Current Visit: Yes Status: Acute Assessment and plan: plan of care as per problem #1. (5) Depression Current Visit: No Status: Chronic Assessment and plan: patient presenting with a suicide attempt. Psychiatry consulted, recommendations appreciated on Bupropion 300mg/PO QAm Qualifiers: Depression Type: unspecified Qualified Code(s): F32.9 - Major depressive disorder, single episode, unspecified - Time Spent With Patient Total time spent is greater than 50% in coordination of care (as documented) at patient's floor/unit and/or counseling patient: Greater than 35 minutes (45)
[2018-06-15] MEDS: Insulin LISPRO 300 UNITS/3 ML VIAL SQ SCH ×9 (14:17→22:38)
--- NOTE | 2018-06-15 17:26 | Pulmonology Consult Note ---
Date of Encounter: 06/16/18 Time of Encounter: 14:00 Assessment and Plan (1) Altered mental status Current Visit: Yes Status: Acute I have seen patient and examined in the emergency room and the patient is easily arousable, however he is lethargic and his encephalopathy is related to ingestion of old dose medication and he is not oriented to self or place or time. He is protecting his airway and easily arousable. He is being treated appropriately at this time and discussed with primary team with close monitoring and IV fluid as well as he had activated charcoal. Qualifiers: Altered mental status type: somnolence Qualified Code(s): R40.0 - Somnolence (2) Metformin overdose Current Visit: Yes Status: Acute Nephrology has been consulted and close monitoring for acidosis mainly lactic acidosis with metformin it will be important and IV fluid because of hypoglycemia is a serious problem for this patient. Psych has been consulted and poison control recommendations will be important. We will be happy to follow up with patient if needed. At this time since patient is not requiring any especial intervention to be in ICU, he can be monitored in 2N and if deteriorate, then can be transferred to ICU. Thank you for consultation History of Present Illness Consult date: 06/15/18 Requesting physician: Ronnie Ayon Reason for consult: other (Critical care management ) Chief complaint: Overdose History of present illness: This is 37 year old male and not able to get any history from patient because of his mental status and not able to reach family and this history is taken from the chart and ER physician. Patient has taken significant numbers of pills as s uicidal attempt. Patient has been very lethargic and has received treatment for the overdose and he has been responding and again this is very limited and patient denies any complaint at this time. Past Med Surg Social Fam HX - Past Medical History Medical history: diabetes, hyperlipidemia, other Psychiatric history: anxiety, bipolar, depression, previous psychiatric hospitalization - Past Surgical History Surgical History: appendectomy, tonsilectomy - Social History Smoking Status: Current every day smoker Smokeless Tobacco Status: No Alcohol use: occasionally Drug use: marijuana - Family History Father Adopted: [place]: Tima Santoyo Age: 55 Living Status: Still Living Hx Family Endocrine Disorder: Yes (family history of diabetes) Medications and Allergies RX: Gabapentin [Neurontin] 600 mg PO TID 03/07/18 [History] RX: Pravastatin Sodium [Pravachol] 40 mg PO DAILY 03/07/18 [History] RX: Trazodone HCl 100 mg PO HS PRN 03/07/18 [History] RX: clonazePAM [Clonazepam] 1 mg PO BID PRN 03/07/18 [History] Bupropion HCl [Wellbutrin Xl] 300 mg PO QAM 06/15/18 [History] HydrOXYzine Pamoate [Vistaril] 50 mg PO BID PRN 06/15/18 [History] metFORMIN [Glucophage] 500 mg PO BIDWM 06/15/18 [History] Allergy/AdvReac Type Severity Reaction Status Date / Time haloperidol [From Haldol] Allergy Hives Verified 11/28/14 14:45 Penicillins [PCN] Allergy Difficulty Verified 11/28/14 14:45 Breathing ziprasidone [From Geodon] Allergy Hives Verified 11/28/14 14:45 lurasidone [From Latuda] AdvReac See Verified 10/25/15 17:34 Comments ROS unobtainable: due to mental status All Systems: The remainder of the systems were reviewed and are negative Physical Examination Vital Signs: Vital Signs, Last 4 Hours Pulse Resp BP Pulse Ox 06/15/18 16:28 88 24 114/83 99 06/15/18 15:30 72 21 99/73 98 06/15/18 15:00 71 18 122/78 97 06/15/18 14:09 71 23 103/78 97 General appearance: no acute distress, asleep Eyes: nonicteric ENT: oropharynx dry Neck: supple Effort: normal Inspection: normal Auscultation: bilateral: clear Percussion: bilateral: not dull Tactile fremitus: bilateral: normal Cardiovascular: regular rate and rhythm Gastrointestinal: normoactive bowel sounds, non-distended Extremities: no cyanosis unable to assess due to mental status Results - Laboratory Findings CBC and BMP: 06/16/18 05:58 06/16/18 08:48 Abnormal lab findings: Abnormal lab results WBC 11.6 K/mcL (4.3-11.1) H 06/15/18 07:11 MCV 81.0 fL (83.0-100.0) L 06/15/18 07:11 MCH 26.7 pg (28.0-33.3) L 06/15/18 07:11 MPV 9.0 fL (9.4-12.4) L 06/15/18 07:11 Neutrophils # 9.1 K/mcL (1.6-8.9) H 06/15/18 07:11 VBG pCO2 39 mmHg (41-51) L 06/15/18 07:25 VBG pO2 131 mmHg (25-50) H 06/15/18 07:25 Creatinine 0.68 mg/dL (0.70-1.30) L 06/15/18 10:39 Glucose 163 mg/dL (70-105) H 06/15/18 10:39 Total Bilirubin 1.3 mg/dL (0.3-1.0) H 06/15/18 07:11 Direct Bilirubin 0.3 mg/dL (0.0-0.2) H 06/15/18 07:11 Ur Specific [place] 1.030 (1.010-1.025) H 06/15/18 10:01 Urine Protein 30 mg/dL (Neg-Trace) H 06/15/18 10:01 Urine Ketones 40 mg/dL (Negative) H 06/15/18 10:01 Urine Bilirubin Small (Negative) H 06/15/18 10:01 Ur Leukocyte Esterase Small (Negative) H 06/15/18 10:01 Urine Microscopic WBC 15-30 per hpf (0-3) H 06/15/18 10:01 Ur Squamous Epith Cells Many per lpf (None-Few) H 06/15/18 10:01 Salicylates < 2.5 mg/dL (15.0-30.0) L 06/15/18 07:11 Acetaminophen < 10 mcg/mL (10-20) L 06/15/18 07:11 - Clinical Findings Intake & Output: Intake & Output 06/15/18 06/15/18 06/15/18 07:59 15:59 23:59 Intake Total 500 / 500 Balance 500 / 500 Weight 113.942 kg Consult Discharge Plan - Plan Referrals: NONE,PCP [Primary Care Provider] -
[2018-06-15 19:40] LABS: BUN/Creatinine Ratio 15 (6-26); Blood Urea Nitrogen 9 mg/dL (6-20); Calcium 8.7 mg/dL (8.6-10.3); Carbon Dioxide 25 mEq/L (23-29); Chloride 109 mEq/L (98-107); Glucose 99 mg/dL (70-105); Osmolality,Calculated 291 (280-300); Potassium 3.8 mEq/L (3.5-5.1); Sodium 141 mEq/L (136-145); eGFR For Non-African Americans > 60 (> 60)
[2018-06-15] MEDS: *HR* Heparin 5,000 UNIT/ML VIAL SQ SCH (21:42)
[2018-06-16] MEDS ORDERED: DEXTROSE 5 % IN WATER 50 ML PGGYBK.PRT IV SCH (00:45)
[2018-06-16] MEDS ORDERED: D5% in 0.9% NACL 1,000 ML IVC SCH (00:45)
[2018-06-16] MEDS ORDERED: D5% in Water 1,000 ML IVC SCH (01:00)
[2018-06-16] MEDS: Sodium Bicarbonate 75 MEQ in 0.45 % Sodium Chloride 1,000 ML IVC SCH ×3 (01:05→21:27)
[2018-06-16] MEDS: Insulin LISPRO 300 UNITS/3 ML VIAL SQ SCH ×16 (01:06→23:30)
[2018-06-16] MEDS: *HR* Heparin 5,000 UNIT/ML VIAL SQ SCH ×2 (05:09→17:02)
--- NOTE | 2018-06-16 06:34 | Event Note ---
Date of Encounter: 06/16/18 Time of Encounter: 06:32 - Nephrology Event Note Nephrology Chart Update The pt's labs yesterday did not develop into a metabolic acidosis or renal failure. No urgent FIREFIGHTER MARINE indications, therefore. (Pending labs today). I will politely sign-off, but please feel free to call or page me with any Renal questions. Thank you,
[2018-06-16 06:45] LABS: Basophils % 0.4 %; Eosinophils # 0.3 K/mcL (0.0-0.6); Hemoglobin 12.7 g/dL (12.9-16.9); Immature Granulocytes % 0.2 % (0-4); Lymphocytes # 1.9 K/mcL (0.6-4.6); Lymphocytes % 22.4 %; Mean Corpuscular HGB Conc 32.6 g/dL (31.6-35.5); Mean Corpuscular Volume 82.8 fL (83.0-100.0); Mean Platelet Volume 9.3 fL (9.4-12.4); Monocytes # 0.6 K/mcL (0.0-1.3); Monocytes % 7.3 %; Neutrophils # 5.6 K/mcL (1.6-8.9); Platelet Count 235 K/mcL (140-400); Red Blood Count 4.71 M/mcL (4.19-5.50); Red Cell Distribution Width 14.3 % (11.5-14.5); Segmented Neutrophils % 66.7 %
[2018-06-16 07:02] LABS: Magnesium 1.8 mg/dL (1.6-2.6); Phosphorous 3.3 mg/dL (2.7-4.5)
[2018-06-16 09:27] LABS: BUN/Creatinine Ratio 11 (6-26); Blood Urea Nitrogen 7 mg/dL (6-20); Calcium 8.7 mg/dL (8.6-10.3); Carbon Dioxide 27 mEq/L (23-29); Chloride 107 mEq/L (98-107); Glucose 103 mg/dL (70-105); Magnesium 1.8 mg/dL (1.6-2.6); Osmolality,Calculated 288 (280-300); Potassium 3.7 mEq/L (3.5-5.1); Sodium 140 mEq/L (136-145); eGFR For Non-African Americans > 60 (> 60)
[2018-06-16] MEDS: Nicotine 21 MG PATCH.TD24 TD SCH (11:37)
--- NOTE | 2018-06-16 12:08 | Internal Med Progress Note ---
Hospitalist Progress Note - Encounter Date of Encounter: 06/16/18 Time of Encounter: 12:02 - Subjective Interval History: Pt seen and examined earlier today with RN and sitter present at bedside. Pt AAO x 3, conversing appropriately. He states he has battled with suicidal ideations all his life and his current suicide attempt was exacerbated due to problems with his . He reports of having three prior suicide attempts in the past. Pt is very tearful and sad during our conversation. He states he has a son and he knows he shouldn't have done this and feels guilty for this suicide attempt. He however continues to have suicidal ideation. Denies any headache, sob, chest pain, palpitations, abd pain, n/v, fever, or chills. Reports of feeling hungry. Ten point ROS is negative except as listed above - Exam Vitals: Temp Pulse Resp BP Pulse Ox 97.8 F 65 18 136/93 98 06/16/18 11:09 06/16/18 11:09 06/16/18 11:09 06/16/18 11:09 06/16/18 11:09 Exam: General: No acute distress, AAO x 3, morbidly obese HEENT: EOMI, PERRLA, NC/AT, no scleral icterus Respiratory: Clear to auscultate bilaterally, no wheezing, no rales Cardiovascular: Regular, Rate, Rhythm, No murmurs GI: Soft, Non tender, non distended, normal bowel sounds Ext: No edema, no tenderness, positive pulses Neuro: AAO x 3, no focal deficits psych: + suicidal ideation, no hallucinations, depressed - Assessment and Plan (1) Depression Current Visit: No Status: Chronic Assessment and Plan: patient presenting with a suicide attempt. Psychiatry consulted, recommendations appreciated on Bupropion 300mg/PO QAm (2) Metformin overdose Current Visit: Yes Status: Acute (3) Suicidal intent Current Visit: Yes Status: Acute (4) Altered mental status Current Visit: Yes Status: Acute (5) DVT prophylaxis Current Visit: Yes Status: Acute - Summary of Assessment and Plan Summary of Assessment and Plan: Patient is a 37y/o male with hx of depression, anxiety, DM who is admitted for drug overdose as a suicide attempt. Assessment/Plan: 1. Drug overdose/Suicide attempt/AMS Metformin overdose no metabolic acidosis or renal failure noted, will continue to closely monitor nephro input appreciated mental status improved, currently AAO x 3 psych evaluation has been requested continue bedside sitter pt willing to go to inpatient psych I spoke with Dr. Neville (psychiatry), she recommended continuing patient's home dose of Clonazepam and holding all other medications until psych evaluation 2. DM continue to monitor fingerstick and blood glucose will change accuchecks to ACHS once patient is tolerating diet hold oral antihyperglycemic agents at this time. 3. DVT ppx: Heparin SQ Co-morbidities: Depression, morbid obesity will defer initiation of anti-psychotic medications as per psychiatry Care plan discussed with patient/RN/Consulting provider tentative d/c to inpatient psych in am - Time Spent with Patient Total time spent is greater than 50% in coordination of care (as documented) at patient's floor/unit and/or counseling patient: 25 - 35 minutes Internal Medicine: Result - Labs CBC & Chem 7: 06/16/18 05:58 06/16/18 08:48 Labs: Short CBC 06/16/18 Range/Units 05:58 WBC 8.4 (4.3-11.1) K/mcL Hgb 12.7 L (12.9-16.9) g/dL Hct 39.0 (37.5-50.1) % Plt Count 235 (140-400) K/mcL Neutrophils # 5.6 (1.6-8.9) K/mcL BMP 06/15/18 06/16/18 18:49 08:48 Sodium 141 140 Potassium 3.8 3.7 Chloride 109 H 107 Carbon Dioxide 25 27 BUN 9 7 Creatinine 0.59 L 0.63 L Glucose 99 103 Calcium 8.7 8.7 - Impressions Impressions Chest X-Ray 06/15/18 11:35 IMPRESSION: 1. Perihilar opacities extending to the bilateral bases. Differential considerations include edema versus atypical infection. 2. Low lung volumes. D/ / 06/15/2018 12:32:37 Bina Jarvis MD / alfredo Interpreting Provider: Bina Jarvis MD Consult Discharge Plan - Plan Referrals: NONE,PCP [Primary Care Provider] - (1) Depression Qualifiers: Depression Type: unspecified Qualified Code(s): F32.9 - Major depressive disorder, single episode, unspecified (4) Altered mental status Qualifiers: Altered mental status type: somnolence Qualified Code(s): R40.0 - Somnolence
[2018-06-16] MEDS: clonazePAM 1 MG TABLET PO PRN (20:07)
[2018-06-17] MEDS: Insulin LISPRO 300 UNITS/3 ML VIAL SQ SCH ×3 (04:19→12:11)
[2018-06-17 05:22] LABS: Basophils % 0.4 %; Eosinophils # 0.2 K/mcL (0.0-0.6); Eosinophils % 2.9 %; Hematocrit 39.2 % (37.5-50.1); Hemoglobin 12.6 g/dL (12.9-16.9); Immature Granulocytes % 0.4 % (0-4); Lymphocytes # 1.9 K/mcL (0.6-4.6); Mean Corpuscular HGB Conc 32.1 g/dL (31.6-35.5); Mean Corpuscular Hemoglobin 26.6 pg (28.0-33.3); Mean Corpuscular Volume 82.9 fL (83.0-100.0); Mean Platelet Volume 9.6 fL (9.4-12.4); Monocytes # 0.5 K/mcL (0.0-1.3); Monocytes % 6.7 %; Neutrophils # 4.7 K/mcL (1.6-8.9); Platelet Count 247 K/mcL (140-400); Red Blood Count 4.73 M/mcL (4.19-5.50); Segmented Neutrophils % 63.6 %
[2018-06-17 05:31] LABS: BUN/Creatinine Ratio 10 (6-26); Blood Urea Nitrogen 6 mg/dL (6-20); Calcium 8.7 mg/dL (8.6-10.3); Carbon Dioxide 28 mEq/L (23-29); Chloride 106 mEq/L (98-107); Glucose 77 mg/dL (70-105); Magnesium 1.8 mg/dL (1.6-2.6); Osmolality,Calculated 290 (280-300); Phosphorous 3.2 mg/dL (2.7-4.5); Potassium 3.3 mEq/L (3.5-5.1); Sodium 142 mEq/L (136-145); eGFR For Non-African Americans > 60 (> 60)
[2018-06-17] MEDS: *HR* Heparin 5,000 UNIT/ML VIAL SQ SCH (05:52)
[2018-06-17] MEDS: clonazePAM 1 MG TABLET PO PRN (06:11)
[2018-06-17] MEDS: Sodium Bicarbonate 75 MEQ in 0.45 % Sodium Chloride 1,000 ML IVC SCH (08:42)
[2018-06-17] MEDS: Nicotine 21 MG PATCH.TD24 TD SCH (08:47)
--- NOTE | 2018-06-17 09:21 | Consult Note ---
Date of Encounter: 06/17/18 Time of Encounter: 07:45 Assessment & Recommendation (1) Depression Current visit: No Status: Chronic Assessment & Recommendation: Transfer to for inpt psych once medically stable. Qualifiers: Depression Type: major depressive disorder Major depression recurrence: recurrent Active/Remission status: currently active Major depression episode severity: severe Psychotic features: without psychotic features Qualified Code(s): F33.2 - Major depressive disorder, recurrent severe without psychotic features History of Present Illness Patient: known to practice within the last 3 years Requesting Physician: Serena Landeros MD Reason for consult: SI History of present illness: Mr. Santoyo is a 37 year old male who was admitted medically for OD on metformin. Now medically cleared. Patient states that he has felt depressed on and off for the past year, but is gotten worse the last month or 2. He states that it is better very rough year. He endorses signs and symptoms of depression; he feels hopeless and helpless, he does not feel like doing anything he used like to do, he has no energy, he has problems with focus and concentration, he is not physically take care of his medical issues which include diabetes. 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 It was his boss that ended up bringing him and because he thought that he was depressed. He is not sure what is going to help with his depression. He feels mood is a little up-and-down. Some manic sympsoms. No psychosis. No HI. He acknowledges smoking marijuana daily basis and thinks he is going to probably quit doing that. He is going to need housing upon discharge states. He wants to be discharged to [facility]. He denies any homicidal ideation. He denies any auditory/visual hallucinations. He denies any mind reading or getting special messages from the TV or radio. CC: Serena Landeros MD Past Med Surg Social Fam HX - Past Medical History Medical history: diabetes, hyperlipidemia, other - Past Psychiatric History Psychiatric history: Reports: bipolar, prior suicide attempt, previous psychiatric hospitalization Past psychiatric history details: Several prior psych admits, most recent 1A in March 2018. Linked with [facility]. Positive hx of OD in past Family psychiatric history: No Family History of Suicide: None - Past Surgical History Surgical History: appendectomy, tonsilectomy - Social History Smoking Status: Current every day smoker Packs per day: 1 Smokeless Tobacco Status: No Alcohol use: occasionally Drug use: marijuana - Family History Father Adopted: [place]: Tima Santoyo Age: 55 Living Status: Still Living Hx Family Endocrine Disorder: Yes (family history of diabetes) Medications & Allergies Gabapentin [Neurontin] 600 mg PO TID 03/07/18 [History] Pravastatin Sodium [Pravachol] 40 mg PO DAILY 03/07/18 [History] Trazodone HCl 100 mg PO HS PRN 03/07/18 [History] clonazePAM [Clonazepam] 1 mg PO BID PRN 03/07/18 [History] Bupropion HCl [Wellbutrin Xl] 300 mg PO QAM 06/15/18 [History] HydrOXYzine Pamoate [Vistaril] 50 mg PO BID PRN 06/15/18 [History] metFORMIN [Glucophage] 500 mg PO BIDWM 06/15/18 [History] Allergy/AdvReac Type Severity Reaction Status Date / Time haloperidol [From Haldol] Allergy Hives Verified 11/28/14 14:45 Penicillins [PCN] Allergy Difficulty Verified 11/28/14 14:45 Breathing ziprasidone [From Geodon] Allergy Hives Verified 11/28/14 14:45 lurasidone [From Latuda] AdvReac See Verified 10/25/15 17:34 Comments Review of Systems Constitutional: Denies: fever Eyes: Denies: eye pain Ears, Nose, Throat: Denies: ear pain Cardiovascular: Denies: chest pain Respiratory: Denies: cough Gastrointestinal: Denies: abdominal pain Genitourinary male: Denies: urgency Musculoskeletal: Denies: back pain Integumentary: Denies: rash Neurological: Denies: headache Psychiatric: Reports: depression, anxiety, abnormal sleep pattern, suicidal ideation, hopelessness Endocrine: Denies: fatigue Hematologic/Lymphatic: Denies: easy bleeding Allergic/Immunologic: Denies: facial swelling Psychiatry Exam - Constitutional Vitals: Temp Pulse Resp BP Pulse Ox 98.4 F 64 20 112/78 96 06/17/18 07:36 06/17/18 07:36 06/17/18 07:36 06/17/18 07:36 06/17/18 07:36 General appearance: age & developmentally appropriate - Musculoskeletal Gait: other (in bed) Station: stooped Strength & Tone: mild weakness - Psychiatric Patient Orientation: Yes Person, Yes Time, Yes Place Level of alertness: Alert Behavior: tearful Psychomotor activity: Slowed Eye Contact: Minimal Contact Mood Description: Depressed Patient description of mood: "down" Affect description: dysphoric Speech Volume: Soft/Quiet Speech pattern: normal rate Language & Vocabulary: consistent with education Thought Process: Linear, Goal Oriented Thought Content: Yes Suicidal ideation Perceptual Disturbances: No Auditory hallucinations, No Visual hallucinations Attention Span Ability: Capable of Focused Attention Memory Description: Grossly Intact Patient Reliability: Reliable Historian Fund of knowledge: Yes abstraction ability, Yes aware of current events Intelligence Estimate: Average Judgment: Limited Insight: Minimal Results - Drug Levels and Toxicology Drug Levels and Toxicology: All Lab Results (24 Hours) 06/16/18 06/16/18 06/16/18 Range/Units 06:30 07:42 08:45 WBC (4.3-11.1) K/mcL RBC (4.19-5.50) M/mcL Hgb (12.9-16.9) g/dL Hct (37.5-50.1) % MCV (83.0-100.0) fL MCH (28.0-33.3) pg MCHC (31.6-35.5) g/dL RDW (11.5-14.5) % Plt Count (140-400) K/mcL MPV (9.4-12.4) fL Immature Gran % (0-4) % Seg Neutrophils % % Lymphocytes % % Monocytes % % Eosinophils % % Basophils % % Neutrophils # (1.6-8.9) K/mcL Lymphocytes # (0.6-4.6) K/mcL Monocytes # (0.0-1.3) K/mcL Eosinophils # (0.0-0.6) K/mcL Basophils # (0.0-0.2) K/mcL Sodium (136-145) mEq/L Potassium (3.5-5.1) mEq/L Chloride (98-107) mEq/L Carbon Dioxide (23-29) mEq/L BUN (6-20) mg/dL Creatinine (0.70-1.30) mg/dL Est GFR ( Amer) (> 60) Est GFR (Non-Af Amer) (> 60) BUN/Creatinine Ratio (6-26) Glucose (70-105) mg/dL POC Glucose 97 90 98 (70-99) mg/dL Calculated Osmolality (280-300) Calcium (8.6-10.3) mg/dL Phosphorus (2.7-4.5) mg/dL Magnesium (1.6-2.6) mg/dL 06/16/18 06/16/18 06/16/18 Range/Units 08:48 09:27 10:29 WBC (4.3-11.1) K/mcL RBC (4.19-5.50) M/mcL Hgb (12.9-16.9) g/dL Hct (37.5-50.1) % MCV (83.0-100.0) fL MCH (28.0-33.3) pg MCHC (31.6-35.5) g/dL RDW (11.5-14.5) % Plt Count (140-400) K/mcL MPV (9.4-12.4) fL Immature Gran % (0-4) % Seg Neutrophils % % Lymphocytes % % Monocytes % % Eosinophils % % Basophils % % Neutrophils # (1.6-8.9) K/mcL Lymphocytes # (0.6-4.6) K/mcL Monocytes # (0.0-1.3) K/mcL Eosinophils # (0.0-0.6) K/mcL Basophils # (0.0-0.2) K/mcL Sodium 140 (136-145) mEq/L Potassium 3.7 (3.5-5.1) mEq/L Chloride 107 (98-107) mEq/L Carbon Dioxide 27 (23-29) mEq/L BUN 7 (6-20) mg/dL Creatinine 0.63 L (0.70-1.30) mg/dL Est GFR ( Amer) > 60 (> 60) Est GFR (Non-Af Amer) > 60 (> 60) BUN/Creatinine Ratio 11 (6-26) Glucose 103 (70-105) mg/dL POC Glucose 97 110 H (70-99) mg/dL Calculated Osmolality 288 (280-300) Calcium 8.7 (8.6-10.3) mg/dL Phosphorus 3.0 (2.7-4.5) mg/dL Magnesium 1.8 (1.6-2.6) mg/dL 06/16/18 06/16/18 06/16/18 Range/Units 11:05 17:00 19:03 WBC (4.3-11.1) K/mcL RBC (4.19-5.50) M/mcL Hgb (12.9-16.9) g/dL Hct (37.5-50.1) % MCV (83.0-100.0) fL MCH (28.0-33.3) pg MCHC (31.6-35.5) g/dL RDW (11.5-14.5) % Plt Count (140-400) K/mcL MPV (9.4-12.4) fL Immature Gran % (0-4) % Seg Neutrophils % % Lymphocytes % % Monocytes % % Eosinophils % % Basophils % % Neutrophils # (1.6-8.9) K/mcL Lymphocytes # (0.6-4.6) K/mcL Monocytes # (0.0-1.3) K/mcL Eosinophils # (0.0-0.6) K/mcL Basophils # (0.0-0.2) K/mcL Sodium (136-145) mEq/L Potassium (3.5-5.1) mEq/L Chloride (98-107) mEq/L Carbon Dioxide (23-29) mEq/L BUN (6-20) mg/dL Creatinine (0.70-1.30) mg/dL Est GFR ( Amer) (> 60) Est GFR (Non-Af Amer) (> 60) BUN/Creatinine Ratio (6-26) Glucose (70-105) mg/dL POC Glucose 108 H 114 H 91 (70-99) mg/dL Calculated Osmolality (280-300) Calcium (8.6-10.3) mg/dL Phosphorus (2.7-4.5) mg/dL Magnesium (1.6-2.6) mg/dL 06/16/18 06/17/18 06/17/18 Range/Units 23:28 03:56 03:56 WBC 7.4 (4.3-11.1) K/mcL RBC 4.73 (4.19-5.50) M/mcL Hgb 12.6 L (12.9-16.9) g/dL Hct 39.2 (37.5-50.1) % MCV 82.9 L (83.0-100.0) fL MCH 26.6 L (28.0-33.3) pg MCHC 32.1 (31.6-35.5) g/dL RDW 14.0 (11.5-14.5) % Plt Count 247 (140-400) K/mcL MPV 9.6 (9.4-12.4) fL Immature Gran % 0.4 (0-4) % Seg Neutrophils % 63.6 % Lymphocytes % 26.0 % Monocytes % 6.7 % Eosinophils % 2.9 % Basophils % 0.4 % Neutrophils # 4.7 (1.6-8.9) K/mcL Lymphocytes # 1.9 (0.6-4.6) K/mcL Monocytes # 0.5 (0.0-1.3) K/mcL Eosinophils # 0.2 (0.0-0.6) K/mcL Basophils # 0.0 (0.0-0.2) K/mcL Sodium 142 (136-145) mEq/L Potassium 3.3 L (3.5-5.1) mEq/L Chloride 106 (98-107) mEq/L Carbon Dioxide 28 (23-29) mEq/L BUN 6 (6-20) mg/dL Creatinine 0.60 L (0.70-1.30) mg/dL Est GFR ( Amer) > 60 (> 60) Est GFR (Non-Af Amer) > 60 (> 60) BUN/Creatinine Ratio 10 (6-26) Glucose 77 (70-105) mg/dL POC Glucose 80 (70-99) mg/dL Calculated Osmolality 290 (280-300) Calcium 8.7 (8.6-10.3) mg/dL Phosphorus 3.2 (2.7-4.5) mg/dL Magnesium 1.8 (1.6-2.6) mg/dL - Labs Labs: Laboratory Last Values WBC 7.4 K/mcL (4.3-11.1) 06/17/18 03:56 RBC 4.73 M/mcL (4.19-5.50) 06/17/18 03:56 Hgb 12.6 g/dL (12.9-16.9) L 06/17/18 03:56 Hct 39.2 % (37.5-50.1) 06/17/18 03:56 MCV 82.9 fL (83.0-100.0) L 06/17/18 03:56 MCH 26.6 pg (28.0-33.3) L 06/17/18 03:56 MCHC 32.1 g/dL (31.6-35.5) 06/17/18 03:56 RDW 14.0 % (11.5-14.5) 06/17/18 03:56 Plt Count 247 K/mcL (140-400) 06/17/18 03:56 MPV 9.6 fL (9.4-12.4) 06/17/18 03:56 Immature Gran % 0.4 % (0-4) 06/17/18 03:56 Seg Neutrophils % 63.6 % 06/17/18 03:56 Lymphocytes % 26.0 % 06/17/18 03:56 Monocytes % 6.7 % 06/17/18 03:56 Eosinophils % 2.9 % 06/17/18 03:56 Basophils % 0.4 % 06/17/18 03:56 Neutrophils # 4.7 K/mcL (1.6-8.9) 06/17/18 03:56 Lymphocytes # 1.9 K/mcL (0.6-4.6) 06/17/18 03:56 Monocytes # 0.5 K/mcL (0.0-1.3) 06/17/18 03:56 Eosinophils # 0.2 K/mcL (0.0-0.6) 06/17/18 03:56 Basophils # 0.0 K/mcL (0.0-0.2) 06/17/18 03:56 VBG pH 7.38 pH Units (7.32-7.42) 06/15/18 07:25 VBG pCO2 39 mmHg (41-51) L 06/15/18 07:25 VBG pO2 131 mmHg (25-50) H 06/15/18 07:25 VBG HCO3 23 mEq/L (21-27) 06/15/18 07:25 Sodium 142 mEq/L (136-145) 06/17/18 03:56 Potassium 3.3 mEq/L (3.5-5.1) L 06/17/18 03:56 Chloride 106 mEq/L (98-107) 06/17/18 03:56 Carbon Dioxide 28 mEq/L (23-29) 06/17/18 03:56 BUN 6 mg/dL (6-20) 06/17/18 03:56 Creatinine 0.60 mg/dL (0.70-1.30) L 06/17/18 03:56 Est GFR ( Amer) > 60 (> 60) 06/17/18 03:56 Est GFR (Non-Af Amer) > 60 (> 60) 06/17/18 03:56 BUN/Creatinine Ratio 10 (6-26) 06/17/18 03:56 Glucose 77 mg/dL (70-105) 06/17/18 03:56 POC Glucose 80 mg/dL (70-99) 06/16/18 23:28 Calculated Osmolality 290 (280-300) 06/17/18 03:56 Lactic Acid 0.6 mmol/L (0.5-2.2) 06/15/18 18:49 Calcium 8.7 mg/dL (8.6-10.3) 06/17/18 03:56 Phosphorus 3.2 mg/dL (2.7-4.5) 06/17/18 03:56 Magnesium 1.8 mg/dL (1.6-2.6) 06/17/18 03:56 Total Bilirubin 1.3 mg/dL (0.3-1.0) H 06/15/18 07:11 Direct Bilirubin 0.3 mg/dL (0.0-0.2) H 06/15/18 07:11 Indirect Bilirubin 1.0 mg/dL (0.0-1.2) 06/15/18 07:11 AST 37 Units/L (13-39) 06/15/18 07:11 ALT 16 Units/L (7-52) 06/15/18 07:11 Alkaline Phosphatase 39 Units/L (34-104) 06/15/18 07:11 Serum Total Protein 7.7 g/dL (6.4-8.9) 06/15/18 07:11 Albumin 4.5 g/dL (3.5-5.7) 06/15/18 07:11 Globulin 3.2 g/dL (2.4-3.5) 06/15/18 07:11 Albumin/Globulin Ratio 1.4 (1.1-2.2) 06/15/18 07:11 Urine Color Yellow (Yellow) 06/15/18 10:01 Urine Clarity Clear (Clear) 06/15/18 10:01 Urine pH 5.5 pH Units (5.0-8.0) 06/15/18 10:01 Ur Specific [place] 1.030 (1.010-1.025) H 06/15/18 10:01 Urine Protein 30 mg/dL (Neg-Trace) H 06/15/18 10:01 Urine Glucose (UA) Normal mg/dL (Normal) 06/15/18 10:01 Urine Ketones 40 mg/dL (Negative) H 06/15/18 10:01 Urine Blood Negative (Negative) 06/15/18 10:01 Urine Nitrite Negative (Negative) 06/15/18 10:01 Urine Bilirubin Small (Negative) H 06/15/18 10:01 Urine Urobilinogen Normal mg/dL (Normal) 06/15/18 10:01 Ur Leukocyte Esterase Small (Negative) H 06/15/18 10:01 Urine Microscopic RBC 0-3 per hpf (0-3) 06/15/18 10:01 Urine Microscopic WBC 15-30 per hpf (0-3) H 06/15/18 10:01 Ur Squamous Epith Cells Many per lpf (None-Few) H 06/15/18 10:01 Urine Bacteria None Seen per hpf (None-Few) 06/15/18 10:01 Hyaline Casts Few per lpf (None-Few) 06/15/18 10:01 Salicylates < 2.5 mg/dL (15.0-30.0) L 06/15/18 07:11 Urine Opiates Screen Negative ng/mL (Skfdbz=587) 06/15/18 10:02 Acetaminophen < 10 mcg/mL (10-20) L 06/15/18 07:11 Ur Barbiturates Screen Negative ng/mL (Czsmop=291) 06/15/18 10:02 Ur Phencyclidine Scrn Negative ng/mL (Cutoff=25) 06/15/18 10:02 Ur Amphetamines Screen Negative ng/mL (Jgoewy=3850) 06/15/18 10:02 U Benzodiazepines Scrn Negative ng/mL (Sssfgq=503) 06/15/18 10:02 Urine Cocaine Screen Negative ng/mL (Cutoff= 300) 06/15/18 10:02 U Marijuana (THC) Screen Negative ng/mL (Cutoff = 50) 06/15/18 10:02 Ur Drug Screen Interp See Below 06/15/18 10:02 Ethyl Alcohol < 10 mg/dL (Less than 10) 06/15/18 07:11 - Impressions Impressions Chest X-Ray 06/15/18 11:35 IMPRESSION: 1. Perihilar opacities extending to the bilateral bases. Differential considerations include edema versus atypical infection. 2. Low lung volumes. D/ / 06/15/2018 12:32:37 Bina Jarvis MD / alfredo Interpreting Provider: Bina Jarvis MD Consult Discharge Plan - Plan Referrals: NONE,PCP [Primary Care Provider] -
--- NOTE | 2018-06-17 11:26 | Discharge Summary ---
- NOTES TO OUTPATIENT PROVIDER Notes to Outpatient Provider: Pt was admitted for a drug over dose with Metformin as a suicide attempt. He is being discharged to inpatient psych. Date of Encounter: 06/17/18 Time of Encounter: 11:21 - Discharge Diagnosis (1) Depression Priority: Secondary Status: Chronic Qualifiers: Depression Type: major depressive disorder Major depression recurrence: recurrent Active/Remission status: currently active Major depression episode severity: severe Psychotic features: without psychotic features Qualified Code(s): F33.2 - Major depressive disorder, recurrent severe without psychotic features (2) Metformin overdose Priority: Primary Status: Resolved (3) Suicidal intent Priority: Primary Status: Acute (4) Altered mental status Priority: Primary Status: Resolved Qualifiers: Altered mental status type: somnolence Qualified Code(s): R40.0 - Somnolence (5) DVT prophylaxis Priority: Secondary Status: Acute Hospital course: Mr. Santoyo is a 37 year old male with PMH of DM, anxiety, depression, morbid obesity who was admitted for drug overdose with metformin as a suicide attempt. Upon arrival pt was noted to be somnolent due to which he was closely monitor and pulmonology was consulted. Pt was also followed closely by nephrology due to concern of metabolic acidosis and renal failure given Metformin ingestion. Pt's fingerstick was closely monitored, he was placed on bicarb drip, received charcoal in the ER as per poison control's recommendations. Pt responded well to therapy, with improvement of mental status. He did not develop metabolic acidosis and renal function remained within normal range. He was evaluated by psychiatry and inpatient psych was recommended. Pt was seen and examined today. His labs and vitals were reviewed. Noted to be hypokalemic and K was supplemented. He is medically stable for transfer to inpatient psych facility today. Pt demonstrates understanding of his diagnosis and agrees with the discharge care and plan. Discharge discussed with: patient, nurse, solution consultant - Time Spent with Patient Total time spent providing and/or coordinating discharge services: 35 minutes Time spent: Greater than 30 minutes - Discharge Medications Prescriptions: Continue clonazePAM [Clonazepam] 1 mg PO BID PRN PRN Reason: Anxiety Gabapentin [Neurontin] 600 mg PO TID Pravastatin Sodium [Pravachol] 40 mg PO DAILY Trazodone HCl 100 mg PO HS PRN PRN Reason: Sleep metFORMIN [Glucophage] 500 mg PO BIDWM HydrOXYzine Pamoate [Vistaril] 50 mg PO BID PRN PRN Reason: Anxiety Bupropion HCl [Wellbutrin Xl] 300 mg PO QAM Home Medications: Gabapentin [Neurontin] 600 mg PO TID 03/07/18 [History] Pravastatin Sodium [Pravachol] 40 mg PO DAILY 03/07/18 [History] Trazodone HCl 100 mg PO HS PRN 03/07/18 [History] clonazePAM [Clonazepam] 1 mg PO BID PRN 03/07/18 [History] Bupropion HCl [Wellbutrin Xl] 300 mg PO QAM 06/15/18 [History] HydrOXYzine Pamoate [Vistaril] 50 mg PO BID PRN 06/15/18 [History] metFORMIN [Glucophage] 500 mg PO BIDWM 06/15/18 [History] Allergies/Adverse Reactions: Allergy/AdvReac Type Severity Reaction Status Date / Time haloperidol [From Haldol] Allergy Hives Verified 11/28/14 14:45 Penicillins [PCN] Allergy Difficulty Verified 11/28/14 14:45 Breathing ziprasidone [From Geodon] Allergy Hives Verified 11/28/14 14:45 lurasidone [From Latuda] AdvReac See Verified 10/25/15 17:34 Comments Date of admission: 06/15/18 20:18 Primary care physician: PCP NONE Consults: 06/15/18 10:32 Consult to Nephrology [CONS] Routine Consulting Provider: [facility]/MAUREEN/REGLA/SARITHA Reason for Consult: metforming overdose Call Completed: Yes 06/15/18 11:11 Consult to Critical Care [CONS] Stat Consulting Provider: [facility] [place] Reason for Consult: metformin overdose Call Completed: Yes 06/16/18 11:59 Consult to Psychiatry [CONS] Routine Consulting Provider: [facility] [place] Reason consult: Other Other reason and/or additional details: Suicide attempt Call Completed: Yes 06/16/18 17:07 Consult to Pastoral Services [CONS] Routine Comment: Patient requesting to speak with foundry laborer coreroom Discharging clinician: Serena Landeros Anticipated date of discharge: 06/17/18 - Constitutional Vitals: Temp Pulse Resp BP Pulse Ox 98.4 F 64 20 112/78 96 06/17/18 07:36 04/19/19 07:36 06/17/18 07:36 06/17/18 07:36 06/17/18 07:36 Exam: General: No acute distress, AAO x 3, morbidly obese HEENT: EOMI, PERRLA, NC/AT, no scleral icterus Respiratory: Clear to auscultate bilaterally, no wheezing, no rales Cardiovascular: Regular, Rate, Rhythm, No murmurs GI: Soft, Non tender, non distended, normal bowel sounds Ext: No edema, no tenderness, positive pulses Neuro: AAO x 3, no focal deficits psych: + suicidal ideation, no hallucinations, depressed - Patient Status Disposition: Transfer Psychiatric Hosp Condition: Fair Overall status at discharge: patient is back to baseline - Discharge Instructions Follow Up With: NONE,PCP [Primary Care Provider] - Additional Instructions: Please follow up with your primary care physician within five days after your discharge from the hospital. - Diet and Activity Activity: resume usual activities as tolerated Diet: diabetic diet
[2018-06-17 16:49] VITALS: BP 119/80
== END 2018-06-17 16:52 ==
LOC: 2NNU 06:51 → EMEROOARM 06:51 → SUATTDRO 20:18 → 2NNU 21:03 → 3BNU 06-16 22:55
PROVIDERS: ADMIT Internal Medicine; ATTEND Internal Medicine

== ENCOUNTER 2020-02-05 10:21 | Inpatient (IN) ==
[2020-02-05 11:45] LABS: Basophils # 0.1 K/mcL (0.0-0.2); Basophils % 0.4 %; Eosinophils # 0.2 K/mcL (0.0-0.6); Eosinophils % 1.4 %; Hematocrit 47.5 % (37.5-50.1); Hemoglobin 15.3 g/dL (12.9-16.9); Immature Granulocytes % 0.3 % (0-4); Lymphocytes # 2.5 K/mcL (0.6-4.6); Lymphocytes % 21.6 %; Mean Corpuscular HGB Conc 32.2 g/dL (31.6-35.5); Mean Corpuscular Hemoglobin 27.2 pg (28.0-33.3); Mean Corpuscular Volume 84.4 fL (83.0-100.0); Monocytes # 0.7 K/mcL (0.0-1.3); Monocytes % 6.1 %; Platelet Count 375 K/mcL (140-400); Red Blood Count 5.63 M/mcL (4.19-5.50); Red Cell Distribution Width 14.4 % (11.5-14.5); Segmented Neutrophils % 70.2 %; White Blood Count 11.4 K/mcL (4.3-11.1)
[2020-02-05 11:48] LABS: Bilirubin,Urine Negative (Negative); Blood,Urine Negative (Negative); Clarity,Urine Clear (Clear); Color,Urine Light-Yellow (Yellow); Glucose,Urine (UA) Normal (Normal); Ketones,Urine Trace mg/dL (Negative); Leukocyte Esterase,Urine Negative (Negative); Nitrite,Urine Negative (Negative); PH,Urine 6.5 pH Units (5.0-8.0); Protein,Urine Trace mg/dL (Neg-Trace); Specific Gravity,Urine 1.024 (1.010-1.025); Urobilinogen,Urine Normal (Normal)
[2020-02-05 11:49] LABS: Amphetamine Screen,Urine Negative ng/mL (Cutoff=1000); Barbiturate Screen,Urine Negative ng/mL (Cutoff=200); Benzodiazepines Screen,Urine Negative ng/mL (Cutoff=200); Cannabinoid Screen,Urine Positive ng/mL (Cutoff = 50); Cocaine Screen,Urine Negative ng/mL (Cutoff= 300); Opiate Screen,Urine Negative ng/mL (Cutoff=300); Phencyclidine Screen,Urine Negative ng/mL (Cutoff=25)
[2020-02-05 11:55] LABS: Acetaminophen < 10 mcg/mL (10-20); BUN/Creatinine Ratio 18 (6-26); Blood Urea Nitrogen 13 mg/dL (6-20); Calcium 9.8 mg/dL (8.6-10.3); Carbon Dioxide 27 mEq/L (23-29); Chloride 101 mEq/L (98-107); Chol/HDL Ratio 3.3 (0-4.9); Cholesterol 150 mg/dL (< 200); Ethanol < 10 mg/dL (Less than 10); Glucose 69 mg/dL (70-105); HDL Cholesterol 45 mg/dL (40-59); LDL Cholesterol,Calculated 94 mg/dL (< 100); Osmolality,Calculated 282 (280-300); Potassium 3.7 mEq/L (3.5-5.1); Salicylate < 2.5 mg/dL (15.0-30.0); Sodium 137 mEq/L (136-145); Triglycerides 55 mg/dL (< 150); eGFR For African Americans > 60 (> 60); eGFR For Non-African Americans > 60 (> 60)
[2020-02-05 14:03] LABS: Estimated Average Glucose 123 mg/dl; Hemoglobin A1C 5.9 %
[2020-02-05] MEDS ORDERED: QUEtiapine Fumarate 25 MG TABLET PO PRN (14:35)
[2020-02-05] MEDS ORDERED: *HR* LORazepam 2 MG/ML VIAL IM PRN (14:35)
[2020-02-05] MEDS ORDERED: MOM Conc 10 ML UD.LIQ PO PRN (14:35)
[2020-02-05] MEDS ORDERED: *HR* LORazepam 1 MG TABLET PO PRN (14:35)
[2020-02-05] MEDS ORDERED: Mag Hydrox/Al Hydrox/Simeth 30 ML UDC PO PRN (14:35)
[2020-02-05] MEDS ORDERED: QUEtiapine Fumarate 100 MG TABLET PO PRN (14:37)
[2020-02-05] MEDS: clonazePAM 0.5 MG TABLET PO SCH ×2 (17:13→20:38)
[2020-02-05] MEDS: *HR* Metformin 500 MG TABLET PO SCH (17:14)
[2020-02-05] MEDS: Gabapentin 300 MG CAPSULE PO SCH (20:38)
[2020-02-06] MEDS: hydrOXYzine pamoate 25 MG CAPSULE PO PRN (01:19)
[2020-02-06] MEDS: *HR* Metformin 500 MG TABLET PO SCH ×2 (08:31→16:56)
[2020-02-06] MEDS: Gabapentin 300 MG CAPSULE PO SCH ×2 (08:32→21:02)
[2020-02-06] MEDS: clonazePAM 0.5 MG TABLET PO SCH ×3 (08:32→21:02)
[2020-02-06] MEDS: BuPROPion XL (24 HR) 150 MG TABLET PO SCH (08:32)
[2020-02-06] MEDS: Nicotine 2 MG GUM BC PRN ×2 (11:55→13:55)
[2020-02-06] MEDS: Divalproex (12 HR) 500 MG TABLET PO SCH ×2 (12:07→21:02)
[2020-02-07] MEDS: Gabapentin 300 MG CAPSULE PO SCH ×2 (08:42→20:44)
[2020-02-07] MEDS: BuPROPion XL (24 HR) 150 MG TABLET PO SCH (08:42)
[2020-02-07] MEDS: clonazePAM 0.5 MG TABLET PO SCH ×3 (08:42→20:44)
[2020-02-07] MEDS: Divalproex (12 HR) 500 MG TABLET PO SCH ×2 (08:42→20:44)
[2020-02-07] MEDS: Nicotine 2 MG GUM BC PRN ×2 (08:42→21:08)
[2020-02-07] MEDS: *HR* Metformin 500 MG TABLET PO SCH ×2 (08:42→16:49)
[2020-02-07] MEDS: hydrOXYzine pamoate 25 MG CAPSULE PO PRN ×2 (12:24→21:21)
[2020-02-08] MEDS: BuPROPion XL (24 HR) 150 MG TABLET PO SCH (08:59)
[2020-02-08] MEDS: Divalproex (12 HR) 500 MG TABLET PO SCH ×2 (08:59→20:24)
[2020-02-08] MEDS: *HR* Metformin 500 MG TABLET PO SCH ×2 (08:59→17:12)
[2020-02-08] MEDS: clonazePAM 0.5 MG TABLET PO SCH ×3 (08:59→20:24)
[2020-02-08] MEDS: Gabapentin 300 MG CAPSULE PO SCH ×2 (08:59→20:24)
[2020-02-08] MEDS: Nicotine 2 MG GUM BC PRN (19:18)
[2020-02-09] MEDS: Nicotine 2 MG GUM BC PRN ×3 (05:36→18:59)
[2020-02-09] MEDS: Gabapentin 300 MG CAPSULE PO SCH ×2 (08:08→20:58)
[2020-02-09] MEDS: *HR* Metformin 500 MG TABLET PO SCH ×2 (08:08→16:30)
[2020-02-09] MEDS: Divalproex (12 HR) 500 MG TABLET PO SCH ×2 (08:08→20:57)
[2020-02-09] MEDS: clonazePAM 0.5 MG TABLET PO SCH ×2 (08:08→16:30)
[2020-02-09] MEDS: BuPROPion XL (24 HR) 150 MG TABLET PO SCH (08:09)
[2020-02-09] MEDS ORDERED: clonazePAM 0.5 MG TABLET PO SCH (11:34)
[2020-02-09 13:47] LABS: Albumin 4.7 g/dL (3.5-5.7); Albumin/Globulin Ratio 1.5 (1.1-2.2); Bilirubin,Direct 0.2 mg/dL (0.0-0.2); Bilirubin,Indirect 0.5 mg/dL (0.0-1.0); Bilirubin,Total 0.7 mg/dL (0.3-1.0); Globulin 3.1 g/dL (2.4-3.5); Total Protein 7.8 g/dL (6.4-8.9)
[2020-02-09] MEDS: hydrOXYzine pamoate 25 MG CAPSULE PO PRN (20:58)
[2020-02-10] MEDS: Nicotine 2 MG GUM BC PRN ×2 (05:35→15:40)
[2020-02-10] MEDS: *HR* Metformin 500 MG TABLET PO SCH ×2 (08:45→17:18)
[2020-02-10] MEDS: BuPROPion XL (24 HR) 150 MG TABLET PO SCH (08:46)
[2020-02-10] MEDS: Divalproex (12 HR) 500 MG TABLET PO SCH ×3 (08:46→21:07)
[2020-02-10] MEDS: Gabapentin 300 MG CAPSULE PO SCH ×2 (08:47→21:07)
[2020-02-10] MEDS: clonazePAM 0.5 MG TABLET PO SCH ×2 (08:50→13:58)
[2020-02-10] MEDS: clonazePAM 1 MG TABLET PO SCH (15:39)
[2020-02-11] MEDS: hydrOXYzine pamoate 25 MG CAPSULE PO PRN (00:49)
[2020-02-11] MEDS: BuPROPion XL (24 HR) 150 MG TABLET PO SCH (09:24)
[2020-02-11] MEDS: *HR* Metformin 500 MG TABLET PO SCH ×2 (09:25→16:51)
[2020-02-11] MEDS: Gabapentin 300 MG CAPSULE PO SCH ×2 (09:25→21:02)
[2020-02-11] MEDS: clonazePAM 1 MG TABLET PO SCH ×3 (09:28→16:03)
[2020-02-11] MEDS ORDERED: hydrOXYzine pamoate 25 MG CAPSULE PO PRN ×2 (10:59→11:01)
[2020-02-11] MEDS ORDERED: traZODone 50 MG TABLET PO ONE (11:15)
[2020-02-11] MEDS: Divalproex (12 HR) 500 MG TABLET PO SCH ×3 (14:10→21:02)
[2020-02-11] MEDS ORDERED: Divalproex (12 HR) 500 MG TABLET PO ONE (15:00)
[2020-02-11] MEDS ORDERED: traZODone 50 MG TABLET PO SCH (21:00)
[2020-02-12] MEDS: Nicotine 2 MG GUM BC PRN ×2 (05:21→15:00)
[2020-02-12] MEDS: BuPROPion XL (24 HR) 150 MG TABLET PO SCH (10:05)
[2020-02-12] MEDS: *HR* Metformin 500 MG TABLET PO SCH ×2 (10:05→16:54)
[2020-02-12] MEDS: Divalproex (12 HR) 500 MG TABLET PO SCH (10:05)
[2020-02-12] MEDS: Gabapentin 300 MG CAPSULE PO SCH ×2 (10:06→20:27)
[2020-02-12] MEDS: clonazePAM 1 MG TABLET PO SCH ×4 (10:07→20:28)
[2020-02-12] MEDS ORDERED: QUEtiapine Fumarate 100 MG TABLET PO PRN (10:08)
[2020-02-12] MEDS: Divalproex (24 HR) 500 MG TABLET PO SCH ×2 (20:27)
[2020-02-12] MEDS: traZODone 50 MG TABLET PO SCH (20:28)
[2020-02-12] MEDS: Acetaminophen 325 MG TABLET PO PRN (21:48)
[2020-02-13] MEDS: *HR* Metformin 500 MG TABLET PO SCH ×2 (07:57→16:38)
[2020-02-13] MEDS: Divalproex (12 HR) 500 MG TABLET PO SCH (07:58)
[2020-02-13] MEDS: BuPROPion XL (24 HR) 150 MG TABLET PO SCH (07:58)
[2020-02-13] MEDS: Gabapentin 300 MG CAPSULE PO SCH ×2 (07:58→21:02)
[2020-02-13] MEDS: clonazePAM 1 MG TABLET PO SCH ×4 (08:00→21:01)
[2020-02-13] MEDS: Nicotine 2 MG GUM BC PRN (10:11)
[2020-02-13] MEDS: Neosporin OINT 15 GM TUBE TP SCH ×3 (12:23→20:59)
[2020-02-13] MEDS: Divalproex (24 HR) 500 MG TABLET PO SCH ×2 (21:02)
[2020-02-13] MEDS: traZODone 50 MG TABLET PO SCH (21:02)
[2020-02-14] MEDS: Acetaminophen 325 MG TABLET PO PRN ×2 (06:57→21:36)
[2020-02-14] MEDS: *HR* Metformin 500 MG TABLET PO SCH ×2 (08:11→16:09)
[2020-02-14] MEDS: Divalproex (12 HR) 500 MG TABLET PO SCH (08:11)
[2020-02-14] MEDS: BuPROPion XL (24 HR) 150 MG TABLET PO SCH (08:11)
[2020-02-14] MEDS: clonazePAM 1 MG TABLET PO SCH ×4 (08:11→20:18)
[2020-02-14] MEDS: Gabapentin 300 MG CAPSULE PO SCH ×2 (08:11→20:18)
[2020-02-14] MEDS: Neosporin OINT 15 GM TUBE TP SCH ×3 (08:13→20:20)
[2020-02-14] MEDS: Nicotine 2 MG GUM BC PRN ×2 (11:23→14:54)
[2020-02-14] MEDS: Divalproex (24 HR) 500 MG TABLET PO SCH ×2 (20:18)
[2020-02-14] MEDS: traZODone 50 MG TABLET PO SCH (20:18)
[2020-02-15] MEDS: Acetaminophen 325 MG TABLET PO PRN (06:31)
[2020-02-15] MEDS: clonazePAM 1 MG TABLET PO SCH ×3 (10:40→20:39)
[2020-02-15] MEDS: Divalproex (12 HR) 500 MG TABLET PO SCH (10:40)
[2020-02-15] MEDS: Gabapentin 300 MG CAPSULE PO SCH ×2 (10:40→20:38)
[2020-02-15] MEDS: *HR* Metformin 500 MG TABLET PO SCH ×2 (10:40→18:04)
[2020-02-15] MEDS: Neosporin OINT 15 GM TUBE TP SCH ×3 (10:41→20:42)
[2020-02-15] MEDS: BuPROPion XL (24 HR) 150 MG TABLET PO SCH (10:41)
[2020-02-15] MEDS: Nicotine 2 MG GUM BC PRN (18:03)
[2020-02-15] MEDS: Divalproex (24 HR) 500 MG TABLET PO SCH ×2 (20:38)
[2020-02-15] MEDS: traZODone 50 MG TABLET PO SCH (20:38)
[2020-02-16 07:51] VITALS: BP 116/78
[2020-02-16] MEDS: Nicotine 2 MG GUM BC PRN (08:43)
[2020-02-16] MEDS: clonazePAM 1 MG TABLET PO SCH (09:47)
[2020-02-16] MEDS: Divalproex (12 HR) 500 MG TABLET PO SCH (09:47)
[2020-02-16] MEDS: *HR* Metformin 500 MG TABLET PO SCH (09:47)
[2020-02-16] MEDS: BuPROPion XL (24 HR) 150 MG TABLET PO SCH (09:47)
[2020-02-16] MEDS: Gabapentin 300 MG CAPSULE PO SCH (09:47)
[2020-02-16] MEDS: Neosporin OINT 15 GM TUBE TP SCH (09:48)
== END 2020-02-16 15:35 | disposition home or self-care (01) | DRG 885 ==
LOC: EMEROOARM 10:21 → 1ANU 14:17
PROVIDERS: ADMIT Psychiatry & Neurology Psychiatry; ATTEND Psychiatry & Neurology Psychiatry